=== PATIENT | female | born 1985 | race Caucasian/White ===

== ENCOUNTER 2018-06-26 18:50 | Emergency (ER) | payer BC, OTHER ==
--- NOTE | 2018-06-26 20:14 | RAD REPORT ---
EXAM DESCRIPTION: CT - Head Brain Wo Cont - 06/26/2018 8:02 pm CLINICAL HISTORY: DIZZINESS Hypertension, drowsiness COMPARISON: No comparisons TECHNIQUE: All CT scans are performed using dose optimization technique as appropriate and may inclu de automated exposure control or mA/KV adjustment according to patient size. FINDINGS: No intracranial hemorrhage, hydrocephalus or extra-axial fluid collection.No areas of brai n edema or evidence of midline shift. The paranasal sinuses and mastoids are clear. The calvarium is intact. IMPRESSION: No acute intracranial abnormality.
--- NOTE | 2018-06-26 20:19 | RAD REPORT ---
EXAM DESCRIPTION: RAD - Chest Single View - 06/26/2018 8:13 pm CLINICAL HISTORY: COUGH Chest pain. COMPARISON: ABDOMEN ACUTE SERIES dated 05/23/2011 FINDINGS: Portable technique limits examination quality. The lungs are grossly clear. The heart is normal in size. No displaced fractures. IMPRESSION: No acute intrathoracic process suspected.
[2018-06-26 20:27] LABS: Absolute Lymphocytes (CBC) 1.8 K/uL (0.7-4.9); Absolute Monocytes 0.5 K/uL (0.1-1.3); Absolute Neutrophil 3.2 K/uL (1.8-8.0); Basophils % 0.9 % (0-1.3); Lymphocytes % 31.7 % (15.3-44.8); MPV 8.9 fL (7.6-11.3); Monocytes % 8.6 % (3.3-12.3); RBC Red Blood Cell Count 4.61 M/uL (3.86-4.86)
[2018-06-26 20:31] LABS: Protime INR 0.9
[2018-06-26] MEDS ORDERED: NA CHLORIDE 0.9% 1,000 ML ONE (20:31)
[2018-06-26] MEDS ORDERED: ACETAMINOPHEN 325 MG TABLET ONE (20:31)
[2018-06-26 20:49] LABS: ALT/SGPT 13 U/L (12-78); AST/SGOT 9 U/L (15-37); Alkaline Phosphatase 48 U/L (45-117); BUN Blood Urea Nitrogen 10 mg/dL (7-18); Bicarbonate 28 mmol/L (21-32); Bilirubin Direct 0.1 mg/dL (0-0.2); Bilirubin Total 0.5 mg/dL (0.2-1.0); Glucose Level 79 mg/dL (74-106); Magnesium 2.3 mg/dL (1.8-2.4); NT PRO-BNP 123 pg/mL (<125); Potassium 3.5 mmol/L (3.5-5.1); Protein, Total 7.1 g/dL (6.4-8.2); Sodium Level 142 mmol/L (136-145); Troponin (Emerg Dept Use Only) < 0.02 ng/mL (0.0-0.045)
[2018-06-26 21:02] LABS: Barbiturates NEGATIVE (NEGATIVE); Benzodiazepines NEGATIVE (NEGATIVE); Cocaine NEGATIVE (NEGATIVE); METHAMPHETAM POSITIVE (NEGATIVE); Methadone NEGATIVE (NEGATIVE); Opiates NEGATIVE (NEGATIVE); Phencyclidine NEGATIVE (NEGATIVE); THC Cannibis NEGATIVE (NEGATIVE)
--- NOTE | 2018-06-26 21:03 | ER ---
Nurse's Notes [facility] Name: Samina Phipps Age: 33 yrs Sex: Female : 1985 Arrival Date: 06/26/2018 Time: 18:54 Bed 25 Private MD: Diagnosis: Syncope and collapse;Fall due to bumping against object;Hyperventilation Presentation: 06/26 18:58 Presenting complaint: EMS states: as per ems. pt was unresponsive as per family after ls4 hyperventalation because of argument with daughter. pt has pain to right hand and redness to right side of face. pt denies medical history. Transition of care: patient was not received from another setting of care. Onset of symptoms was June 26, 2018. Risk Assessment: Do you want to hurt yourself or someone else? Patient reports no desire to harm self or others. Initial Sepsis Screen: Does the patient meet any 2 criteria? No. Patient's initial sepsis screen is negative. Does the patient have a suspected source of infection? No. Patient's initial sepsis screen is negative. Care prior to arrival: None. 18:58 Method Of Arrival: EMS: [facility]4 18:58 Acuity: PATY 3 ls4 Triage Assessment: 19:04 General: Appears in no apparent distress. Behavior is calm, cooperative. ls4 Historical: - Allergies: 19:04 Ancef; ls4 - Home Meds: 21:35 propranolol 10 mg Oral tab 1 tab twice a day [Active]; jd3 21:38 mydayis 37.5 mg [Active]; trazodone 50 mg Oral tab 1 tab nightly [Active]; Viibryd 20 jd3 mg oral tab 1 tabs after meals [Active]; - PSHx: 21:32 BREAST RECONSTRUCTION; Appendectomy; jd3 - Immunization history:: Adult Immunizations unknown. - Social history:: Smoking status: Patient/guardian denies using tobacco, never smoked, Patient/guardian denies using street drugs, IV drugs. - Ebola Screening: : No symptoms or risks identified at this time. - Family history:: not pertinent. Screenin:15 Abuse screen: Denies threats or abuse. Nutritional screening: No deficits noted. jd3 Tuberculosis screening: No symptoms or risk factors identified. Fall Risk Ambulatory Aid- None/Bed Rest/Nurse Assist (0 pts). Gait- Normal/Bed Rest/Wheelchair (0 pts) Mental Status- Oriented to own ability (0 pts). Total Mercer Fall Scale indicates No Risk (0-24 pts). Assessment: 19:12 General: Appears in no apparent distress. uncomfortable, Behavior is cooperative, jd3 appropriate for age, anxious. Pain: Complains of pain in head and right upper quadrant Quality of pain is described as aching, tender. Neuro: Level of Consciousness is awake, alert, obeys commands, Oriented to person, place, time, situation, Appropriate for age Speech is normal, Pupils are PERRLA, Reports dizziness, headache. Cardiovascular: Heart tones S1 S2 present Capillary refill < 3 seconds Patient's skin is warm and dry. Respiratory: Airway is patent Respiratory effort is even, unlabored, Respiratory pattern is regular, symmetrical, Breath sounds are clear bilaterally. GI: Abdomen is flat, non-distended, Bowel sounds present X 4 quads. Abd is soft Abdomen is tender to palpation in right upper quadrant. : No signs and/or symptoms were reported regarding the genitourinary system. EENT: No signs and/or symptoms were reported regarding the EENT system. Derm: Skin is intact, Skin is dry, Skin is normal, Skin temperature is warm redness noted to right side of face. Musculoskeletal: Circulation, motion, and sensation intact. Range of motion: intact in all extremities. 20:37 Reassessment: Patient appears in no apparent distress at this time. No changes from jd3 previously documented assessment. Patient and/or family updated on plan of care and expected duration. Pain level reassessed. Patient is alert, oriented x 3, equal unlabored respirations, skin warm/dry/pink. 21:29 Reassessment: Patient appears in no apparent distress at this time. No changes from jd3 previously documented assessment. Patient and/or family updated on plan of care and expected duration. Pain level reassessed. Patient is alert, oriented x 3, equal unlabored respirations, skin warm/dry/pink. Vital Signs: 19:11 BP 124 / 72; Pulse 74; Resp 17 S; Pulse Ox 100% on R/A; jd3 20:36 BP 109 / 61; Pulse 68; Resp 14 S; Pulse Ox 100% on R/A; jd3 21:30 BP 116 / 73; Pulse 67; Resp 18 S; Pulse Ox 100% on R/A; jd3 22:13 BP 111 / 70; Pulse 66; Resp 17 S; Pulse Ox 100% on R/A; rv ED Course: 18:54 Patient arrived in ED. em1 19:03 Triage completed. ls4 19:11 Remy Cam, RN is Primary Nurse. jd3 19:12 Arm band placed on. jd3 19:13 Flavio Zelaya MD is Attending Physician. elliott 19:15 Patient has correct armband on for positive identification. Bed in low position. Call jd3 light in reach. Side rails up X2. Adult w/ patient. 19:[address] 2 20:02 CT completed. Patient tolerated procedure well. Patient moved back from CT. nj 20:02 CT Head Brain wo Cont In Process Unspecified. EDMS 20:14 XRAY Chest (1 view) In Process Unspecified. EDMS 21:58 Cliff Mclean MD is Referral Physician. elliott 22:02 Basic Metabolic Panel Sent. rv 22:02 CBC with Diff Sent. rv 22:14 No provider procedures requiring assistance completed. IV discontinued, bleeding rv controlled, No redness/swelling at site. Pressure dressing applied. Administered Medications: 20:38 Drug: Tylenol 650 mg Route: PO; jd3 21:31 Follow up: Response: No adverse reaction jd3 20:39 Drug: NS 0.9% 1000 ml Route: IV; Rate: 1 bolus; Site: left antecubital; jd3 22:01 Follow up: IV Status: Completed infusion rv 22:01 Drug: TORadol 30 mg Route: IVP; Site: left antecubital; rv 22:16 Follow up: Response: Pain is decreased rv 22:01 Drug: Zofran 4 mg Route: IVP; Site: left antecubital; rv 22:16 Follow up: Response: Nausea is decreased rv Outcome: 21:01 Discharge ordered by . elliott 22:15 Discharged to home ambulatory. rv 22:15 Condition: good 22:15 Discharge instructions given to patient, family, Instructed on discharge instructions, follow up and referral plans. medication usage, Demonstrated understanding of instructions, follow-up care, medications, Prescriptions given X 1. 22:15 Patient left the ED. rv Signatures: Dispatcher [employer] EDFL Flavio Zelaya MD MD cha Martinez, Eric em1 Ant Rasheed Victoria vm2 Remy Cam RN RN jd3 Nghia Johnson, SP RN rv Lidia Ivory RN RN ls4 Corrections: (The following items were deleted from the chart) 19:15 19:12 Neuro: Level of Consciousness is awake, alert, obeys commands, Oriented to jd3 person, place, time, situation, Appropriate for age jd3 19:15 19:12 Derm: Skin is intact, Skin is dry, Skin is normal, Skin temperature is warm jd3 jd3 20:37 19:12 Neuro: Level of Consciousness is awake, alert, obeys commands, Oriented to jd3 person, place, time, situation, Appropriate for age Speech is normal, Pupils are PERRLA, jd3 21:39 21:29 Reassessment: Patient appears in no apparent distress at this time. Patient jd3 and/or family updated on plan of care and expected duration. Pain level reassessed. Patient is alert, oriented x 3, equal unlabored respirations, skin warm/dry/pink. jd3
--- NOTE | 2018-06-26 21:03 | EDPHYS ---
Physician Documentation [facility] Name: Samina Phipps Age: 33 yrs Sex: Female : 1985 Arrival Date: 06/26/2018 Time: 18:54 Bed 25 Private MD: ED Physician Flavio Zelaya HPI: 06/26 20:14 This 33 yrs old Female presents to ER via EMS with complaints of syncope. elliott 20:14 The patient has experienced syncope. Onset: The symptoms/episode began/occurred just elliott prior to arrival. Duration: This was a single episode, that lasted an unknown period of time. Associated injury: Head/face: forehead and right cheek, contusion, pain. Historical: - Allergies: 19:04 Ancef; ls4 - Home Meds: 21:35 propranolol 10 mg Oral tab 1 tab twice a day [Active]; jd3 21:38 mydayis 37.5 mg [Active]; trazodone 50 mg Oral tab 1 tab nightly [Active]; Viibryd 20 jd3 mg oral tab 1 tabs after meals [Active]; - PSHx: 21:32 BREAST RECONSTRUCTION; Appendectomy; jd3 - Immunization history:: Adult Immunizations unknown. - Social history:: Smoking status: Patient/guardian denies using tobacco, never smoked, Patient/guardian denies using street drugs, IV drugs. - Ebola Screening: : No symptoms or risks identified at this time. - Family history:: not pertinent. ROS: 20:14 Constitutional: Negative for fever, chills, and weight loss, Eyes: Negative for injury, elliott pain, redness, and discharge, ENT: Negative for injury, pain, and discharge, Neck: Negative for injury, pain, and swelling, Cardiovascular: Negative for chest pain, palpitations, and edema, Respiratory: Negative for shortness of breath, cough, wheezing, and pleuritic chest pain, Abdomen/GI: Negative for abdominal pain, nausea, vomiting, diarrhea, and constipation, Back: Negative for injury and pain, : Negative for injury, bleeding, discharge, and swelling, Skin: Negative for injury, rash, and discoloration, Neuro: Negative for headache, weakness, numbness, tingling, and seizure, Psych: Negative for depression, anxiety, suicide ideation, homicidal ideation, and hallucinations, Allergy/Immunology: Negative for hives, rash, and allergies, Endocrine: Negative for neck swelling, polydipsia, polyuria, polyphagia, and marked weight changes, Hematologic/Lymphatic: Negative for swollen nodes, abnormal bleeding, and unusual bruising. 20:14 MS/extremity: Negative for acute changes. Exam: 20:14 Constitutional: This is a well developed, well nourished patient who is awake, alert, elliott and in no acute distress. Head/Face: Normocephalic, atraumatic. Eyes: Pupils equal round and reactive to light, extra-ocular motions intact. Lids and lashes normal. Conjunctiva and sclera are non-icteric and not injected. Cornea within normal limits. Periorbital areas with no swelling, redness, or edema. ENT: Nares patent. No nasal discharge, no septal abnormalities noted. Tympanic membranes are normal and external auditory canals are clear. Oropharynx with no redness, swelling, or masses, exudates, or evidence of obstruction, uvula midline. Mucous membranes moist. Neck: Trachea midline, no thyromegaly or masses palpated, and no cervical lymphadenopathy. Supple, full range of motion without nuchal rigidity, or vertebral point tenderness. No Meningismus. Chest/axilla: Normal chest wall appearance and motion. Nontender with no deformity. No lesions are appreciated. Cardiovascular: Regular rate and rhythm with a normal S1 and S2. No gallops, murmurs, or rubs. Normal PMI, no JVD. No pulse deficits. Respiratory: Lungs have equal breath sounds bilaterally, clear to auscultation and percussion. No rales, rhonchi or wheezes noted. No increased work of breathing, no retractions or nasal flaring. Abdomen/GI: Soft, non-tender, with normal bowel sounds. No distension or tympany. No guarding or rebound. No evidence of tenderness throughout. Back: No spinal tenderness. No costovertebral tenderness. Full range of motion. Female : Normal external genitalia. Skin: Warm, dry with normal turgor. Normal color with no rashes, no lesions, and no evidence of cellulitis. MS/ Extremity: Pulses equal, no cyanosis. Neurovascular intact. Full, normal range of motion. Neuro: Awake and alert, GCS 15, oriented to person, place, time, and situation. Cranial nerves II-XII grossly intact. Motor strength 5/5 in all extremities. Sensory grossly intact. Cerebellar exam normal. Normal gait. Psych: Awake, alert, with orientation to person, place and time. Behavior, mood, and affect are within normal limits. 20:17 Musculoskeletal/extremity: DVT Exam: No signs of deep vein thrombosis. no pain, no elliott swelling, no tenderness, negative Homans' sign noted on exam, no appreciated bluish discoloration, no erythema, no increased warmth. 20:17 Cardiovascular: Rate: normal, Rhythm: regular, Pulses: Pulses are 4+ in bilateral elliott radial, brachial, femoral, popliteal, posterior tibial and and dorsalis pedis arteries.. Heart sounds: normal, normal S1and S2, no S3 or S4, no murmur, no rub, no gallop, Edema: is not appreciated, JVD: is not appreciated. 21:58 Neck: C-spine: appears grossly normal, no acute changes, Thyroid: appears normal, no elliott acute changes, Trachea: is midline with no obvious abnormalities, no acute changes, ROM/movement: is normal, no acute changes, Meningeal signs: are not present, Kernig's sign is negative, Brudzinski's sign is negative, nuchal rigidity, is not appreciated, is present. Vital Signs: 19:11 BP 124 / 72; Pulse 74; Resp 17 S; Pulse Ox 100% on R/A; jd3 20:36 BP 109 / 61; Pulse 68; Resp 14 S; Pulse Ox 100% on R/A; jd3 21:30 BP 116 / 73; Pulse 67; Resp 18 S; Pulse Ox 100% on R/A; jd3 22:13 BP 111 / 70; Pulse 66; Resp 17 S; Pulse Ox 100% on R/A; rv MDM: 19:14 Patient medically screened. [facility] 20:16 Data reviewed: vital signs, nurses notes, lab test result(s), EKG, radiologic studies, [facility] CT scan, plain films. 06/26 19:48 Order name: Basic Metabolic Panel [facility] 06/26 19:48 Order name: CBC with Diff [facility] 06/26 19:48 Order name: LFT's; Complete Time: 21:00 [facility] 06/26 19:48 Order name: Magnesium; Complete Time: 21:00 [facility] 06/26 19:48 Order name: NT PRO-BNP; Complete Time: 21:00 [facility] 06/26 19:48 Order name: PT-INR; Complete Time: 21:00 [facility] 06/26 19:48 Order name: Troponin (emerg Dept Use Only); Complete Time: 21:00 [facility] 06/26 19:48 Order name: Acetaminophen; Complete Time: 21:00 [facility] 06/26 19:48 Order name: ETOH Level; Complete Time: 21:00 [facility] 06/26 19:48 Order name: Ptt, Activated; Complete Time: 21:00 [facility] 06/26 19:48 Order name: Salicylate; Complete Time: 21:00 [facility] 06/26 19:48 Order name: Urine Drug Screen; Complete Time: 21:49 [facility] 06/26 19:49 Order name: Basic Metabolic Panel; Complete Time: 21:00 [facility] 06/26 19:49 Order name: CBC with Automated Diff; Complete Time: 21:00 [facility] 06/26 19:48 Order name: XRAY Chest (1 view); Complete Time: 21:00 [facility] 06/26 19:48 Order name: EKG; Complete Time: 19:49 [facility] 06/26 19:48 Order name: Cardiac monitoring; Complete Time: 20:39 [facility] 06/26 19:48 Order name: EKG - Nurse/Tech; Complete Time: 20:49 [facility] 06/26 19:48 Order name: IV Saline Lock; Complete Time: 20:39 [facility] 06/26 19:48 Order name: Labs collected and sent; Complete Time: 20:39 [facility] 06/26 19:48 Order name: O2 Per Protocol; Complete Time: 19:54 [facility] 06/26 19:48 Order name: O2 Sat Monitoring; Complete Time: 19:54 [facility] 06/26 19:48 Order name: Urine Dipstick-Ancillary (obtain specimen); Complete Time: 20:39 [facility] 06/26 19:48 Order name: CT Head Brain wo Cont; Complete Time: 21:00 [facility] 06/26 20:56 Order name: Urine Dipstick--Ancillary (enter results); Complete Time: 21:49 [facility] 06/26 20:56 Order name: Urine --Ancillary (enter results); Complete Time: 21:49 [facility] 06/26 19:48 Order name: Urine Test (obtain specimen); Complete Time: 20:39 [facility] Administered Medications: 20:38 Drug: Tylenol 650 mg Route: PO; jd3 21:31 Follow up: Response: No adverse reaction jd3 20:39 Drug: NS 0.9% 1000 ml Route: IV; Rate: 1 bolus; Site: left antecubital; jd3 22:01 Follow up: IV Status: Completed infusion rv 22:01 Drug: TORadol 30 mg Route: IVP; Site: left antecubital; rv 22:16 Follow up: Response: Pain is decreased rv 22:01 Drug: Zofran 4 mg Route: IVP; Site: left antecubital; rv 22:16 Follow up: Response: Nausea is decreased rv Disposition: 06/26/18 21:01 Discharged to Home. Impression: Syncope and collapse, Fall due to bumping against object, Hyperventilation. - Condition is Stable. - Discharge Instructions: Hyperventilation, Syncope, Near-Syncope, [id number], Syncope, [id number]-[id number], Fall Prevention in the Home, [id number], Vasovagal Syncope, Adult. - Prescriptions for Zofran 4 mg Oral Tablet - take 1 tablet by ORAL route every 12 hours As needed; 8 tablet. - Medication Reconciliation Form, Thank You Letter, Antibiotic Education, Prescription Opioid Use, Work release form, Family Work Release form. - Follow up: Private Physician; When: 2 - 3 days; Reason: Recheck today's complaints, Continuance of care, Re-evaluation by your physician. Follow up: Cliff Mclean MD; When: 2 - 3 days; Reason: Recheck today's complaints, Continuance of care, Re-evaluation by your physician. - Problem is new. - Symptoms have improved. Signatures: Dispatcher [employer] EDIA Flavio Zelaya MD MD cha Davies, Jonathon RN RN jd3 Nghia Johnson RN RN Lidia Chapin RN RN ls4 Corrections: (The following items were deleted from the chart) 22:01 21:01 06/26/2018 21:01 Discharged to Home. Impression: Syncope and collapse; Fall due elliott to bumping against object. Condition is Stable. Discharge Instructions: Syncope, Near-Syncope, [id number], Syncope, [id number], Fall Prevention in the Home, [id number], Vasovagal Syncope, Adult. Forms are Medication Reconciliation Form, Thank You Letter, Antibiotic Education, Prescription Opioid Use. Follow up: Private Physician; When: 2 - 3 days; Reason: Recheck today's complaints, Continuance of care, Re-evaluation by your physician. Problem is new. Symptoms have improved. elliott 22:15 22:01 06/26/2018 21:01 Discharged to Home. Impression: Syncope and collapse; Fall due rv to bumping against object; Hyperventilation. Condition is Stable. Discharge Instructions: Syncope, Near-Syncope, [id number], Syncope, [id number], Fall Prevention in the Home, [id number]-[id number], Vasovagal Syncope, Adult. Forms are Medication Reconciliation Form, Thank You Letter, Antibiotic Education, Prescription Opioid Use. Follow up: Private Physician; When: 2 - 3 days; Reason: Recheck today's complaints, Continuance of care, Re-evaluation by your physician. Follow up: Cliff Mclean; When: 2 - 3 days; Reason: Recheck today's complaints, Continuance of care, Re-evaluation by your physician. Problem is new. Symptoms have improved. elliott
[2018-06-26 21:04] LABS: Urine Blood NEGATIVE (NEG); Urine Glucose NEGATIVE (NEG); Urine Protein NEGATIVE (NEG)
[2018-06-26] MEDS ORDERED: ONDANSETRON 4 MG/2 ML VIAL ONE (22:06)
[2018-06-26] MEDS ORDERED: KETOROLAC 30 MG/ML INJ ONE (22:06)
--- NOTE | 2018-06-27 08:16 | EKG ---
Test Date: 2018-06-26 Test Time: 20:45:41 [employer]: YOAN MEASUREMENT RESULTS: Intervals: Rate: 70 MD: 138 QRSD: 82 QT: 372 QTc: 401 [place]: P: 44 MD: 138 QRS: 93 T: 79 INTERPRETIVE STATEMENTS: Normal sinus rhythm Rightward axis Nonspecific ST abnormality Abnormal ECG No previous ECG available for comparison Electronically Signed On 06-27-18 08:09:05 [facility] by Chaz Grant
== END 2018-06-26 22:15 | disposition home or self-care (01) ==
LOC: ER 18:50
DX: R55 Syncope and collapse (principal); R06.4 Hyperventilation; R94.31 Abnormal electrocardiogram [ECG] [EKG]; W18.00XA Striking against unspecified object with subsequent fall, initial encounter; Z79.899 Other long term (current) drug therapy
CPT/HCPCS: 36415; 70450; 71045; 80048; 80076; 80307; 80320; 80329; 81003; 81025; 83735; 83880; 84484; 85025; 85610; 85730; 93005; 96361; 96374; 96375; 99284; J2405; J7030